=== PATIENT | female | born 1965 | race Caucasian/White ===

== ENCOUNTER → 2016-08-18 | Outpatient (CLI) | payer OTHER ==
[~2016-08-18] MED LIST: CEPHALEXIN500 M1 PO
== END ==
LOC: MC.RAD 08:00
DX: Z12.31 Encounter for screening mammogram for malignant neoplasm of breast (principal)

== ENCOUNTER 2017-04-05 14:29 | Outpatient (RCR) | payer OTHER ==
[2017-04-05] MEDS ORDERED: CEPHALEXIN500 M1 PO (17:25)
== END 2017-04-09 08:32 ==
LOC: WSOH 14:29
DX: S63.286A Dislocation of proximal interphalangeal joint of right little finger, initial encounter (principal); Y92.219 Unspecified school as the place of occurrence of the external cause

== ENCOUNTER 2017-04-05 15:37 | Emergency (ER) | payer OTHER ==
[~2017-04-05] VITALS: Ht 167.6 cm; Wt 90.9 kg
[2017-04-05 15:40] VITALS: BP 159/74; TEMP 97.1
[2017-04-05] MEDS ORDERED: CEPHALEXIN500 M1 PO (17:25)
[2017-04-05 17:58] VITALS: PULSE 80
== END 2017-04-05 17:58 | disposition home or self-care (01) ==
LOC: COL.ER 15:37
DX: S63.286A Dislocation of proximal interphalangeal joint of right little finger, initial encounter (principal); S61.236A Puncture wound without foreign body of right little finger without damage to nail, initial encounter; W22.8XXA Striking against or struck by other objects, initial encounter
CPT/HCPCS: J2060

== ENCOUNTER 2017-07-16 13:44 | Outpatient (RCR) | payer OTHER | END 2017-07-16 14:42 | disposition home or self-care (01) | LOC: WSOH 13:44 | DX: S63.286D Dislocation of proximal interphalangeal joint of right little finger, subsequent encounter (principal); X58.XXXD Exposure to other specified factors, subsequent encounter; Y92.219 Unspecified school as the place of occurrence of the external cause; Y99.0 Civilian activity done for income or pay; Z88.0 Allergy status to penicillin ==

== ENCOUNTER → 2017-12-06 | Outpatient (RCR) | payer OTHER | END | disposition home or self-care (01) | LOC: WSOT | DX: S62.606D Fracture of unspecified phalanx of right little finger, subsequent encounter for fracture with routine healing (principal); W23.1XXD Caught, crushed, jammed, or pinched between stationary objects, subsequent encounter ==

== ENCOUNTER 2018-01-12 14:00 | Outpatient (RCR) | payer OTHER | END 2018-03-08 | disposition home or self-care (01) | LOC: WSOT | DX: S62.606D Fracture of unspecified phalanx of right little finger, subsequent encounter for fracture with routine healing (principal) ==

== ENCOUNTER → 2018-12-02 | Outpatient (CLI) | payer BC | LOC: MC.RAD 08:55 | DX: Z12.31 Encounter for screening mammogram for malignant neoplasm of breast (principal) ==

== ENCOUNTER → 2020-02-20 | Outpatient (CLI) | payer BC | LOC: MC.RAD 02-08 17:00 | DX: Z12.31 Encounter for screening mammogram for malignant neoplasm of breast (principal) ==

== ENCOUNTER → 2021-05-21 | Outpatient (CLI) | payer BC | LOC: DIA.ED 03-05 | DX: E11.65 Type 2 diabetes mellitus with hyperglycemia (principal); Z79.84 Long term (current) use of oral hypoglycemic drugs | CPT/HCPCS: G0108 ==

== ENCOUNTER → 2021-07-30 | Outpatient (CLI) | payer BC | LOC: DIA.ED 06-16 10:49 | DX: E11.65 Type 2 diabetes mellitus with hyperglycemia (principal); Z79.84 Long term (current) use of oral hypoglycemic drugs | CPT/HCPCS: G0108 ==

== ENCOUNTER → 2021-09-25 | Outpatient (CLI) | payer BC | LOC: MC.RAD 15:11 | DX: Z12.31 Encounter for screening mammogram for malignant neoplasm of breast (principal) ==

== ENCOUNTER → 2023-04-12 | Outpatient (CLI) | payer BC | LOC: MC.RAD 03-15 10:30 | DX: Z12.31 Encounter for screening mammogram for malignant neoplasm of breast (principal) ==